=== PATIENT | male | born 1945 | race Caucasian/White ===

== ENCOUNTER 2018-07-01 08:32 | Day surgery (SDC) | payer MEDICARE, BC ==
[~2018-07-01] VITALS: Ht 185.4 cm; Wt 105.3 kg
[2018-07-01] VITALS (13 sets, daily range): BP systolic 120–158; BP diastolic 53–89
[2018-07-01] MEDS ORDERED: normal saline 1000ml 1,000 ML IV SCH (09:15)
[2018-07-01] MEDS ORDERED: MIDAZolam 5mg/ml 2ml vial IV ONE (09:15)
[2018-07-01] MEDS ORDERED: fentaNYL/PF 50MCG/1 ML 2ML syringe IV ONE (09:15)
[2018-07-01] MEDS ORDERED: SYN0.088T PO (09:39)
[2018-07-01] MEDS ORDERED: COU4T PO (09:39)
[2018-07-01] MEDS ORDERED: AMIO200T40 PO (09:39)
[2018-07-01] MEDS ORDERED: ASPI-1265 PO (09:39)
[2018-07-01] MEDS ORDERED: METO-539 PO (09:39)
[2018-07-01] MEDS ORDERED: LISI-600 PO (09:39)
[2018-07-01 09:51] LABS: BASOPHILS % (AUTO) 0.3 % (0-1); EOSINOPHILS # (AUTO) 0.2 X10'3 (0-0.9); EOSINOPHILS % (AUTO) 3.3 % (0-6); HEMATOCRIT 50.3 % (42.0-52.0); HEMOGLOBIN 17.7 g/dl (14.0-17.9); LYMPHOCYTES # (AUTO) 1.1 X10'3 (1.1-4.8); LYMPHOCYTES % (AUTO) 15.7 % (21-51); MEAN CORPUSCULAR HEMOGLOBIN 32.2 PG (27.0-31.0); MEAN CORPUSCULAR HGB CONC 35.2 g/dL (33.0-36.5); MEAN CORPUSCULAR VOLUME 91.4 FL (78-98); MEAN PLATELET VOLUME 6.9 FL (7.4-10.4); MONOCYTES # (AUTO) 0.3 X10'3 (0-0.9); MONOCYTES % (AUTO) 4.6 % (2-12); NEUTROPHILS # (AUTO) 5.5 X10'3 (1.8-7.7); NEUTROPHILS % (AUTO) 76.1 % (42-75); PLATELET COUNT 178 X10'3 (140-440); RED BLOOD COUNT 5.51 X10'6 (4.70-6.10); RED CELL DISTRIBUTION WIDTH 13.3 % (11.5-14.5); WHITE BLOOD COUNT 7.2 X10'3 (4.5-11.0)
[2018-07-01 10:02] LABS: ALBUMIN 4.2 G/DL (3.4-5.0); ANION GAP 7 (8-16); BLOOD UREA NITROGEN 11 MG/DL (7-18); BUN/CREATININE RATIO 8.1 (5.4-32.0); CALCIUM 9.2 MG/DL (8.5-10.1); CHLORIDE 103 MMOL/L (99-107); CREATININE 1.35 MG/DL (0.60-1.10); GLUCOSE 92 MG/DL (70-104); MAGNESIUM 2.1 MG/DL (1.5-2.4); POTASSIUM 4.2 MMOL/L (3.5-5.1); SODIUM 138 MMOL/L (135-145); TOTAL CARBON DIOXIDE 27.7 MMOL/L (24-32); eGFR 52 ML/MIN
[2018-07-01 10:16] LABS: INR 2.7 INR; PROTHROMBIN TIME 25.6 SECONDS (9.0-12.0)
== END 2018-07-01 12:15 | disposition home or self-care (01) ==
LOC: SSTAY O 08:32
PROVIDERS: ATTEND Internal Medicine Cardiovascular Disease
DX: I48.0 Paroxysmal atrial fibrillation (principal); I44.7 Left bundle-branch block, unspecified; I10 Essential (primary) hypertension; E03.9 Hypothyroidism, unspecified; I35.0 Nonrheumatic aortic (valve) stenosis; I71.9 Aortic aneurysm of unspecified site, without rupture; H91.8X3 Other specified hearing loss, bilateral; Z98.52 Vasectomy status; Z86.79 Personal history of other diseases of the circulatory system; Z87.891 Personal history of nicotine dependence; Z88.5 Allergy status to narcotic agent; Z90.49 Acquired absence of other specified parts of digestive tract; Z95.2 Presence of prosthetic heart valve; Z79.82 Long term (current) use of aspirin; Z79.01 Long term (current) use of anticoagulants; Z79.899 Other long term (current) drug therapy; Z98.890 Other specified postprocedural states; Z80.1 Family history of malignant neoplasm of trachea, bronchus and lung; Z82.49 Family history of ischemic heart disease and other diseases of the circulatory system
CPT/HCPCS: 36415; 80048; 83735; 85025; 85610; 92960; 93005; J2250; J3010; J7030

== ENCOUNTER 2022-06-26 12:44 | Inpatient (IN) | payer MEDICARE, BC ==
[~2022-06-26] VITALS: Ht 182.9 cm; Wt 93.5 kg
[~2022-06-26 12:44] MED LIST: AMIO200T61 PO; ASPI-1265 PO; COU4T PO; LISI20TA28 PO; METO-539 PO; SYN0.088T PO
[2022-06-26 13:18] LABS: BASOPHILS % (AUTO) 0.3 % (0-1); EOSINOPHILS % (AUTO) 0.1 % (0-6); HEMATOCRIT 37.1 % (42.0-52.0); HEMOGLOBIN 12.7 g/dl (14.0-17.9); LYMPHOCYTES # (AUTO) 0.4 X10'3 (1.1-4.8); LYMPHOCYTES % (AUTO) 2.7 % (21-51); MEAN CORPUSCULAR HEMOGLOBIN 31.8 PG (27.0-31.0); MEAN CORPUSCULAR HGB CONC 34.3 g/dL (33.0-36.5); MEAN CORPUSCULAR VOLUME 92.7 FL (78-98); MEAN PLATELET VOLUME 6.8 FL (7.4-10.4); MONOCYTES # (AUTO) 0.5 X10'3 (0-0.9); MONOCYTES % (AUTO) 3.7 % (2-12); NEUTROPHILS % (AUTO) 93.2 % (42-75); PLATELET COUNT 242 X10'3 (140-440); RED CELL DISTRIBUTION WIDTH 13.6 % (11.5-14.5)
[2022-06-26] MEDS: dextrose 5%-1/2 normal saline 1,000 ML IV SCH ×3 (13:20→21:20)
[2022-06-26 13:34] LABS: ALANINE AMINOTRANSFERASE 29 U/L (12-78); ALBUMIN 3.4 G/DL (3.4-5.0); ALKALINE PHOSPHATASE 94 IU/L (46-116); ANION GAP 17 (8-16); ASPARTATE AMINO TRANSFERASE 20 U/L (10-37); BILIRUBIN,TOTAL 0.5 MG/DL (0.1-1.0); BLOOD UREA NITROGEN 117 MG/DL (7-18); BUN/CREATININE RATIO 9.7 (5.4-32.0); CHLORIDE 105 MMOL/L (99-107); CREATININE 12.02 MG/DL (0.60-1.10); GLUCOSE 111 MG/DL (70-104); POTASSIUM 5.4 MMOL/L (3.5-5.1); SODIUM 136 MMOL/L (135-145); TOTAL PROTEIN 6.8 G/DL (6.4-8.2); eGFR 4 ML/MIN
[2022-06-26 13:39] LABS: TOTAL CARBON DIOXIDE 14.4 MMOL/L (24-32)
[2022-06-26] MEDS ORDERED: potassium Cl 40MEQ/1/2NS 520ml 520 ML IV PRN (13:40)
[2022-06-26] MEDS ORDERED: magnesium 4gm in 100ml NS 100 ML IV PRN (13:40)
[2022-06-26] MEDS ORDERED: ondansetron/PF 4mg/2ml inj IV PRN (13:40)
[2022-06-26] MEDS: normal saline 1000ml 1,000 ML IV SCH ×2 (13:40→23:40)
[2022-06-26] MEDS ORDERED: potassium Cl 20 mEq SR tablet PO PRN ×2 (13:40)
[2022-06-26] MEDS ORDERED: magnesium Cl slow-release 64mg tablet PO PRN (13:40)
--- NOTE | 2022-06-26 13:52 | NUR ---
Pt will be receiving Sodium bicarb 1mEq/ml 50 ml in Dextrose 5%- water IV 1000ml, so NS not admin.
--- NOTE | 2022-06-26 14:06 | NUR ---
PAGED DR BEEBE AT THIS TIME FOR INR OF 8.
[2022-06-26] MEDS: WATER IV SCH ×2 (14:34→20:57)
[2022-06-26] MEDS: DEXTROSE 5% IV SCH ×2 (14:34→20:57)
[2022-06-26] MEDS: SODIUM BICARBONATE IV SCH ×2 (14:34→20:57)
--- NOTE | 2022-06-26 14:38 | NUR ---
REPAGED DR BEEBE AT THIS TIME FOR REPORTING CRITICAL LAB VALUE AND ORDER FOR CONTINOUS BLADDER IRRIGATION FOR HEMATURIA?PT HAS 2 WAY STEINER FROM [facility] .
--- NOTE | 2022-06-26 14:47 | NUR ---
SPOKE TO DR BEEBE REGARDING PT INR LEVEL 8 TELE ORDER TO GIVE 2 UNIT OF FFP ,ALSO INFORMED THAT PT HAS HEMATURIA ?DOES PT NEED CONT BLADDER IRRIGATION , PER MD NO BLADDER IRRIGATION AT THIS TIME.
[2022-06-26] MEDS ORDERED: CHOL100046 PO (15:38)
[2022-06-26] MEDS ORDERED: WARF-55 PO (15:38)
[2022-06-26] MEDS ORDERED: LEVO100T9 PO (15:38)
[2022-06-26] MEDS ORDERED: METO-395 PO (15:38)
[2022-06-26] MEDS ORDERED: LISI40TA13 PO (15:38)
[2022-06-26] MEDS ORDERED: ASCO500T28 PO (15:38)
[2022-06-26] MEDS ORDERED: ASPI81TA52 PO (15:38)
--- NOTE | 2022-06-26 16:07 | NUR ---
Patient in room ED 6. I have received report from ER nurse Julia GREEN and had the opportunity to ask questions and assume patient care.
[2022-06-26 16:23] VITALS: BP 158/77
[2022-06-26 17:08] VITALS: BP 134/74
--- NOTE | 2022-06-26 17:10 | NUR ---
First unit of FFP started. Nurse at bedside monitoring.
--- NOTE | 2022-06-26 17:39 | NUR ---
Patient arrived to floor via gurney accompanied by ER nurse. Transfered to hospital bed. Bi carb running at 250/hr. Anand in place draining to gravity Bloody urine. No complaints noted. Addendum: 06/26/22 at 1741 by BALJEET BRIZUELA LVN 1620 not 1740
[2022-06-26 18:00] VITALS: BP 135/71
--- NOTE | 2022-06-26 18:00 | NUR ---
Patient in room PCU 3026. I have received report from NORMA Cooper and had the opportunity to ask questions and assume patient care.
[2022-06-26] MEDS: K and/or MAG REPLACEMENT MC SCH (20:00)
[2022-06-26 21:39] LABS: ALANINE AMINOTRANSFERASE 27 U/L (12-78); ALKALINE PHOSPHATASE 76 IU/L (46-116); ANION GAP 14 (8-16); ASPARTATE AMINO TRANSFERASE 15 U/L (10-37); BILIRUBIN,TOTAL 0.6 MG/DL (0.1-1.0); BLOOD UREA NITROGEN 88 MG/DL (7-18); BUN/CREATININE RATIO 11.2 (5.4-32.0); CALCIUM 8.1 MG/DL (8.5-10.1); CHLORIDE 107 MMOL/L (99-107); CREATININE 7.87 MG/DL (0.60-1.10); GLUCOSE 164 MG/DL (70-104); POTASSIUM 4.7 MMOL/L (3.5-5.1); SODIUM 139 MMOL/L (135-145); eGFR 7 ML/MIN
[2022-06-26 22:00] VITALS: BP 156/77
[2022-06-27] MEDS: dextrose 5%-1/2 normal saline 1,000 ML IV SCH ×2 (01:20→05:20)
[2022-06-27] MEDS: SODIUM BICARBONATE IV SCH ×4 (01:36→12:34)
[2022-06-27] MEDS: DEXTROSE 5% IV SCH ×4 (01:36→12:34)
[2022-06-27] MEDS: WATER IV SCH ×4 (01:36→12:34)
[2022-06-27 02:47] VITALS: BP 142/74
[2022-06-27 04:27] LABS: BASOPHILS % (AUTO) 0.3 % (0-1); EOSINOPHILS # (AUTO) 0.1 X10'3 (0-0.9); EOSINOPHILS % (AUTO) 0.8 % (0-6); HEMATOCRIT 28.6 % (42.0-52.0); HEMOGLOBIN 10.1 g/dl (14.0-17.9); LYMPHOCYTES # (AUTO) 0.8 X10'3 (1.1-4.8); MEAN CORPUSCULAR HEMOGLOBIN 32.3 PG (27.0-31.0); MEAN CORPUSCULAR HGB CONC 35.4 g/dL (33.0-36.5); MEAN CORPUSCULAR VOLUME 91.3 FL (78-98); MEAN PLATELET VOLUME 6.5 FL (7.4-10.4); MONOCYTES # (AUTO) 0.6 X10'3 (0-0.9); MONOCYTES % (AUTO) 6.9 % (2-12); NEUTROPHILS # (AUTO) 7.8 X10'3 (1.8-7.7); PLATELET COUNT 194 X10'3 (140-440); RED BLOOD COUNT 3.13 X10'6 (4.70-6.10); RED CELL DISTRIBUTION WIDTH 13.4 % (11.5-14.5); WHITE BLOOD COUNT 9.4 X10'3 (4.5-11.0)
[2022-06-27 06:00] VITALS: BP 154/80
[2022-06-27 06:31] LABS: ALANINE AMINOTRANSFERASE 24 U/L (12-78); ALKALINE PHOSPHATASE 71 IU/L (46-116); ANION GAP 9 (8-16); ASPARTATE AMINO TRANSFERASE 14 U/L (10-37); BILIRUBIN,TOTAL 1.1 MG/DL (0.1-1.0); BLOOD UREA NITROGEN 63 MG/DL (7-18); BUN/CREATININE RATIO 12.1 (5.4-32.0); CALCIUM 8.3 MG/DL (8.5-10.1); CHLORIDE 108 MMOL/L (99-107); GLUCOSE 148 MG/DL (70-104); MAGNESIUM 1.7 MG/DL (1.5-2.4); POTASSIUM 4.7 MMOL/L (3.5-5.1); SODIUM 138 MMOL/L (135-145); TOTAL PROTEIN 5.9 G/DL (6.4-8.2); eGFR 11 ML/MIN
[2022-06-27] MEDS: K and/or MAG REPLACEMENT MC SCH ×2 (08:00→20:00)
[2022-06-27 12:00] VITALS: BP 136/74
[2022-06-27 13:51] LABS: ALANINE AMINOTRANSFERASE 24 U/L (12-78); ALBUMIN 3.2 G/DL (3.4-5.0); ALKALINE PHOSPHATASE 81 IU/L (46-116); ANION GAP 7 (8-16); ASPARTATE AMINO TRANSFERASE 20 U/L (10-37); BILIRUBIN,TOTAL 1.1 MG/DL (0.1-1.0); BLOOD UREA NITROGEN 52 MG/DL (7-18); BUN/CREATININE RATIO 13.3 (5.4-32.0); CALCIUM 8.5 MG/DL (8.5-10.1); CHLORIDE 106 MMOL/L (99-107); GLUCOSE 137 MG/DL (70-104); POTASSIUM 4.2 MMOL/L (3.5-5.1); SODIUM 137 MMOL/L (135-145); TOTAL CARBON DIOXIDE 24.3 MMOL/L (24-32); TOTAL PROTEIN 6.4 G/DL (6.4-8.2); eGFR 15 ML/MIN
--- NOTE | 2022-06-27 14:54 | NUR ---
PAGER ID: [phone] MESSAGE: [id number], Yo Hamlin. Pt has a headache and is asking for Tylenol. Also, I have another pt of yours threatening AMA if they don't get discharge orders soon. Zuleika [facility] [id number].
[2022-06-27] MEDS ORDERED: acetaminophen 325mg tablet PO PRN (15:55)
[2022-06-27] MEDS ORDERED: warfarin 5mg tablet PO ONE ×2 (16:15→21:00)
[2022-06-27 18:00] VITALS: BP 105/64
--- NOTE | 2022-06-27 19:21 | NUR ---
Problems reprioritized. Patient report given, questions answered & plan of care reviewed with Sreedhar GREEN, patient stable at transfer of care..
[2022-06-27] MEDS: sodium chloride 0.45% 1,000 ML IV SCH ×2 (19:40→22:25)
[2022-06-27 21:29] LABS: ALANINE AMINOTRANSFERASE 24 U/L (12-78); ALBUMIN 2.9 G/DL (3.4-5.0); ALKALINE PHOSPHATASE 72 IU/L (46-116); ANION GAP 10 (8-16); ASPARTATE AMINO TRANSFERASE 15 U/L (10-37); BILIRUBIN,TOTAL 0.7 MG/DL (0.1-1.0); BLOOD UREA NITROGEN 40 MG/DL (7-18); BUN/CREATININE RATIO 12.7 (5.4-32.0); CALCIUM 8.5 MG/DL (8.5-10.1); CHLORIDE 106 MMOL/L (99-107); CREATININE 3.16 MG/DL (0.60-1.10); GLUCOSE 113 MG/DL (70-104); POTASSIUM 4.4 MMOL/L (3.5-5.1); SODIUM 139 MMOL/L (135-145); TOTAL CARBON DIOXIDE 23.5 MMOL/L (24-32); TOTAL PROTEIN 5.9 G/DL (6.4-8.2); eGFR 19 ML/MIN
[2022-06-27] MEDS: heparin, porcine 5000 units/ml vial SQ SCH (21:55)
[2022-06-27 22:00] VITALS: BP 129/76
[2022-06-28] MEDS: sodium chloride 0.45% 1,000 ML IV SCH ×3 (01:55→13:32)
[2022-06-28 02:00] VITALS: BP 118/64
[2022-06-28 07:55] LABS: BASOPHILS # (AUTO) 0.1 X10'3 (0-0.2); BASOPHILS % (AUTO) 0.5 % (0-1); EOSINOPHILS # (AUTO) 0.4 X10'3 (0-0.9); EOSINOPHILS % (AUTO) 3.8 % (0-6); HEMATOCRIT 30.7 % (42.0-52.0); HEMOGLOBIN 10.5 g/dl (14.0-17.9); LYMPHOCYTES # (AUTO) 1.1 X10'3 (1.1-4.8); LYMPHOCYTES % (AUTO) 10.3 % (21-51); MEAN CORPUSCULAR HEMOGLOBIN 31.8 PG (27.0-31.0); MEAN CORPUSCULAR HGB CONC 34.2 g/dL (33.0-36.5); MEAN PLATELET VOLUME 6.9 FL (7.4-10.4); MONOCYTES # (AUTO) 0.7 X10'3 (0-0.9); MONOCYTES % (AUTO) 6.8 % (2-12); NEUTROPHILS # (AUTO) 8.6 X10'3 (1.8-7.7); NEUTROPHILS % (AUTO) 78.6 % (42-75); PLATELET COUNT 224 X10'3 (140-440); RED CELL DISTRIBUTION WIDTH 13.4 % (11.5-14.5); WHITE BLOOD COUNT 10.9 X10'3 (4.5-11.0)
[2022-06-28] MEDS: K and/or MAG REPLACEMENT MC SCH ×2 (08:00→20:00)
[2022-06-28] MEDS: levoTHYROXINE 100mcg tablet PO SCH (08:35)
[2022-06-28] MEDS: heparin, porcine 5000 units/ml vial SQ SCH (08:37)
[2022-06-28 08:42] LABS: ALANINE AMINOTRANSFERASE 23 U/L (12-78); ALKALINE PHOSPHATASE 73 IU/L (46-116); ANION GAP 7 (8-16); ASPARTATE AMINO TRANSFERASE 15 U/L (10-37); BILIRUBIN,TOTAL 0.9 MG/DL (0.1-1.0); BLOOD UREA NITROGEN 32 MG/DL (7-18); BUN/CREATININE RATIO 13.2 (5.4-32.0); CALCIUM 8.7 MG/DL (8.5-10.1); CHLORIDE 107 MMOL/L (99-107); CREATININE 2.43 MG/DL (0.60-1.10); GLUCOSE 96 MG/DL (70-104); MAGNESIUM 1.6 MG/DL (1.5-2.4); SODIUM 137 MMOL/L (135-145); TOTAL CARBON DIOXIDE 22.8 MMOL/L (24-32); TOTAL PROTEIN 6.1 G/DL (6.4-8.2); eGFR 26 ML/MIN
[2022-06-28] MEDS ORDERED: heparin 10,000 units/1 ML INJ IV PRN (09:55)
[2022-06-28] MEDS ORDERED: heparin 10,000 units/1 ML INJ IV ONE (09:55)
[2022-06-28] MEDS: heparin 25,000 UNIT/250ml bag 250 ML IV PRN (11:56)
[2022-06-28 11:57] LABS: APTT 34 SECONDS (22-32)
[2022-06-28 13:07] LABS: ALANINE AMINOTRANSFERASE 26 U/L (12-78); ALKALINE PHOSPHATASE 72 IU/L (46-116); ANION GAP 4 (8-16); ASPARTATE AMINO TRANSFERASE 17 U/L (10-37); BILIRUBIN,TOTAL 0.7 MG/DL (0.1-1.0); BLOOD UREA NITROGEN 31 MG/DL (7-18); BUN/CREATININE RATIO 13.8 (5.4-32.0); CALCIUM 8.8 MG/DL (8.5-10.1); CHLORIDE 106 MMOL/L (99-107); CREATININE 2.24 MG/DL (0.60-1.10); GLUCOSE 101 MG/DL (70-104); POTASSIUM 4.8 MMOL/L (3.5-5.1); SODIUM 135 MMOL/L (135-145); TOTAL CARBON DIOXIDE 24.8 MMOL/L (24-32); TOTAL PROTEIN 6.1 G/DL (6.4-8.2); eGFR 29 ML/MIN
[2022-06-28 18:00] VITALS: BP 107/70
--- NOTE | 2022-06-28 18:19 | NUR ---
Problems reprioritized. Patient report given, questions answered & plan of care reviewed with Sreedhar GREEN, patient stable at transfer of care.
[2022-06-28 18:35] LABS: BASOPHILS # (AUTO) 0.1 X10'3 (0-0.2); BASOPHILS % (AUTO) 0.4 % (0-1); EOSINOPHILS # (AUTO) 0.6 X10'3 (0-0.9); EOSINOPHILS % (AUTO) 4.5 % (0-6); HEMATOCRIT 29.2 % (42.0-52.0); HEMOGLOBIN 10.2 g/dl (14.0-17.9); LYMPHOCYTES # (AUTO) 1.9 X10'3 (1.1-4.8); LYMPHOCYTES % (AUTO) 14.6 % (21-51); MEAN CORPUSCULAR HEMOGLOBIN 32.1 PG (27.0-31.0); MEAN CORPUSCULAR HGB CONC 34.9 g/dL (33.0-36.5); MEAN PLATELET VOLUME 6.9 FL (7.4-10.4); MONOCYTES # (AUTO) 0.7 X10'3 (0-0.9); MONOCYTES % (AUTO) 5.5 % (2-12); NEUTROPHILS # (AUTO) 9.7 X10'3 (1.8-7.7); PLATELET COUNT 258 X10'3 (140-440); RED BLOOD COUNT 3.17 X10'6 (4.70-6.10); WHITE BLOOD COUNT 12.9 X10'3 (4.5-11.0)
[2022-06-28] MEDS ORDERED: warfarin 3mg tablet PO ONE (21:00)
[2022-06-28] MEDS ORDERED: warfarin 5mg tablet PO SCH (21:00)
[2022-06-28 22:00] VITALS: BP 110/65
[2022-06-29 02:00] VITALS: BP 105/58
[2022-06-29] MEDS: sodium chloride 0.45% 1,000 ML IV SCH ×2 (02:18→15:12)
[2022-06-29 07:00] VITALS: BP 114/68
[2022-06-29] MEDS: K and/or MAG REPLACEMENT MC SCH ×2 (08:00→20:00)
[2022-06-29] MEDS: levoTHYROXINE 100mcg tablet PO SCH (08:19)
[2022-06-29 08:26] LABS: ALBUMIN 3.1 G/DL (3.4-5.0); ANION GAP 4 (8-16); BLOOD UREA NITROGEN 33 MG/DL (7-18); BUN/CREATININE RATIO 16.5 (5.4-32.0); CALCIUM 8.9 MG/DL (8.5-10.1); CHLORIDE 106 MMOL/L (99-107); GLUCOSE 107 MG/DL (70-104); MAGNESIUM 1.8 MG/DL (1.5-2.4); POTASSIUM 4.8 MMOL/L (3.5-5.1); SODIUM 133 MMOL/L (135-145); eGFR 33 ML/MIN
[2022-06-29 08:33] LABS: BASOPHILS # (AUTO) 0.1 X10'3 (0-0.2); BASOPHILS % (AUTO) 0.6 % (0-1); EOSINOPHILS # (AUTO) 0.6 X10'3 (0-0.9); HEMOGLOBIN 10.3 g/dl (14.0-17.9); LYMPHOCYTES # (AUTO) 1.8 X10'3 (1.1-4.8); LYMPHOCYTES % (AUTO) 14.7 % (21-51); MEAN CORPUSCULAR HEMOGLOBIN 31.4 PG (27.0-31.0); MEAN CORPUSCULAR HGB CONC 33.2 g/dL (33.0-36.5); MEAN CORPUSCULAR VOLUME 94.6 FL (78-98); MEAN PLATELET VOLUME 6.9 FL (7.4-10.4); MONOCYTES # (AUTO) 0.8 X10'3 (0-0.9); MONOCYTES % (AUTO) 6.5 % (2-12); NEUTROPHILS % (AUTO) 73.2 % (42-75); PLATELET COUNT 241 X10'3 (140-440); RED BLOOD COUNT 3.27 X10'6 (4.70-6.10); RED CELL DISTRIBUTION WIDTH 13.4 % (11.5-14.5); WHITE BLOOD COUNT 12.3 X10'3 (4.5-11.0)
[2022-06-29] MEDS: heparin 25,000 UNIT/250ml bag 250 ML IV PRN (08:34)
[2022-06-29 11:00] VITALS: BP 136/69
[2022-06-29 11:54] VITALS: BP_SYST 105; BP_SYST 110; BP_SYST 136; BP_DIAS 60; BP_DIAS 69; BP_DIAS 71
[2022-06-29 14:36] LABS: BASOPHILS # (AUTO) 0.1 X10'3 (0-0.2); BASOPHILS % (AUTO) 0.6 % (0-1); EOSINOPHILS # (AUTO) 0.5 X10'3 (0-0.9); EOSINOPHILS % (AUTO) 5.2 % (0-6); HEMATOCRIT 28.9 % (42.0-52.0); LYMPHOCYTES # (AUTO) 1.5 X10'3 (1.1-4.8); LYMPHOCYTES % (AUTO) 14.5 % (21-51); MEAN CORPUSCULAR HEMOGLOBIN 32.3 PG (27.0-31.0); MEAN CORPUSCULAR HGB CONC 34.6 g/dL (33.0-36.5); MEAN CORPUSCULAR VOLUME 93.3 FL (78-98); MEAN PLATELET VOLUME 6.8 FL (7.4-10.4); MONOCYTES # (AUTO) 0.6 X10'3 (0-0.9); MONOCYTES % (AUTO) 6.4 % (2-12); NEUTROPHILS # (AUTO) 7.4 X10'3 (1.8-7.7); NEUTROPHILS % (AUTO) 73.3 % (42-75); PLATELET COUNT 250 X10'3 (140-440); RED CELL DISTRIBUTION WIDTH 13.3 % (11.5-14.5); WHITE BLOOD COUNT 10.1 X10'3 (4.5-11.0)
[2022-06-29 15:00] VITALS: BP 118/59
[2022-06-29 18:00] VITALS: BP_SYST 122; BP_SYST 132; BP_DIAS 67
[2022-06-29] MEDS ORDERED: warfarin 7.5mg tablet PO ONE (21:00)
[2022-06-29] MEDS ORDERED: warfarin 3mg tablet PO ONE (21:00)
[2022-06-30] VITALS (8 sets, daily range): BP systolic 94–135; BP diastolic 56–74
[2022-06-30] MEDS: heparin 25,000 UNIT/250ml bag 250 ML IV PRN (03:19)
[2022-06-30 06:45] LABS: ALBUMIN 2.8 G/DL (3.4-5.0); ANION GAP 8 (8-16); BLOOD UREA NITROGEN 28 MG/DL (7-18); BUN/CREATININE RATIO 15.2 (5.4-32.0); CALCIUM 8.7 MG/DL (8.5-10.1); CHLORIDE 106 MMOL/L (99-107); CREATININE 1.84 MG/DL (0.60-1.10); GLUCOSE 101 MG/DL (70-104); MAGNESIUM 1.6 MG/DL (1.5-2.4); POTASSIUM 4.5 MMOL/L (3.5-5.1); SODIUM 136 MMOL/L (135-145); TOTAL CARBON DIOXIDE 21.6 MMOL/L (24-32); eGFR 36 ML/MIN
[2022-06-30 06:55] LABS: BASOPHILS # (AUTO) 0.1 X10'3 (0-0.2); BASOPHILS % (AUTO) 0.8 % (0-1); EOSINOPHILS # (AUTO) 0.5 X10'3 (0-0.9); EOSINOPHILS % (AUTO) 5.4 % (0-6); HEMOGLOBIN 9.7 g/dl (14.0-17.9); LYMPHOCYTES # (AUTO) 1.4 X10'3 (1.1-4.8); MEAN CORPUSCULAR HEMOGLOBIN 32.2 PG (27.0-31.0); MEAN CORPUSCULAR HGB CONC 34.8 g/dL (33.0-36.5); MEAN CORPUSCULAR VOLUME 92.4 FL (78-98); MEAN PLATELET VOLUME 7.5 FL (7.4-10.4); MONOCYTES # (AUTO) 0.5 X10'3 (0-0.9); NEUTROPHILS # (AUTO) 6.4 X10'3 (1.8-7.7); NEUTROPHILS % (AUTO) 71.8 % (42-75); PLATELET COUNT 227 X10'3 (140-440); RED BLOOD COUNT 3.03 X10'6 (4.70-6.10); RED CELL DISTRIBUTION WIDTH 13.1 % (11.5-14.5)
[2022-06-30] MEDS: levoTHYROXINE 100mcg tablet PO SCH (07:00)
[2022-06-30] MEDS: K and/or MAG REPLACEMENT MC SCH ×2 (08:00→20:00)
[2022-06-30] MEDS: enoxaparin 60mg/0.6ml syringe SUBCUT SCH ×2 (12:53→20:41)
[2022-06-30] MEDS: enoxaparin 30mg/0.3ml syringe SUBCUT SCH ×2 (12:54→20:40)
[2022-06-30 14:01] LABS: BASOPHILS # (AUTO) 0.1 X10'3 (0-0.2); BASOPHILS % (AUTO) 0.5 % (0-1); EOSINOPHILS # (AUTO) 0.5 X10'3 (0-0.9); EOSINOPHILS % (AUTO) 4.9 % (0-6); HEMATOCRIT 28.7 % (42.0-52.0); HEMOGLOBIN 9.7 g/dl (14.0-17.9); LYMPHOCYTES # (AUTO) 1.4 X10'3 (1.1-4.8); MEAN CORPUSCULAR HEMOGLOBIN 31.5 PG (27.0-31.0); MEAN CORPUSCULAR HGB CONC 33.9 g/dL (33.0-36.5); MONOCYTES # (AUTO) 0.7 X10'3 (0-0.9); MONOCYTES % (AUTO) 7.1 % (2-12); NEUTROPHILS # (AUTO) 7.5 X10'3 (1.8-7.7); NEUTROPHILS % (AUTO) 73.5 % (42-75); PLATELET COUNT 251 X10'3 (140-440); RED BLOOD COUNT 3.08 X10'6 (4.70-6.10); RED CELL DISTRIBUTION WIDTH 12.9 % (11.5-14.5); WHITE BLOOD COUNT 10.1 X10'3 (4.5-11.0)
[2022-06-30] MEDS ORDERED: enoxaparin 100mg/ml syringe SUBCUT ONE (20:00)
[2022-06-30] MEDS ORDERED: warfarin 7.5mg tablet PO ONE (21:00)
[2022-07-01] VITALS: BP_SYST 85; BP_SYST 86; BP_SYST 97; BP_DIAS 43; BP_DIAS 55; BP_DIAS 61
[2022-07-01 06:25] LABS: BASOPHILS # (AUTO) 0.1 X10'3 (0-0.2); BASOPHILS % (AUTO) 0.6 % (0-1); EOSINOPHILS # (AUTO) 0.4 X10'3 (0-0.9); EOSINOPHILS % (AUTO) 4.5 % (0-6); HEMATOCRIT 27.3 % (42.0-52.0); HEMOGLOBIN 9.5 g/dl (14.0-17.9); LYMPHOCYTES # (AUTO) 1.7 X10'3 (1.1-4.8); LYMPHOCYTES % (AUTO) 16.9 % (21-51); MEAN CORPUSCULAR HGB CONC 34.7 g/dL (33.0-36.5); MEAN CORPUSCULAR VOLUME 92.2 FL (78-98); MEAN PLATELET VOLUME 7.1 FL (7.4-10.4); MONOCYTES # (AUTO) 0.6 X10'3 (0-0.9); MONOCYTES % (AUTO) 5.9 % (2-12); NEUTROPHILS # (AUTO) 7.1 X10'3 (1.8-7.7); NEUTROPHILS % (AUTO) 72.1 % (42-75); PLATELET COUNT 259 X10'3 (140-440); RED BLOOD COUNT 2.96 X10'6 (4.70-6.10); WHITE BLOOD COUNT 9.8 X10'3 (4.5-11.0)
[2022-07-01 06:32] LABS: ALBUMIN 2.9 G/DL (3.4-5.0); ANION GAP 7 (8-16); BLOOD UREA NITROGEN 24 MG/DL (7-18); BUN/CREATININE RATIO 12.6 (5.4-32.0); CALCIUM 8.8 MG/DL (8.5-10.1); CHLORIDE 105 MMOL/L (99-107); CREATININE 1.91 MG/DL (0.60-1.10); GLUCOSE 99 MG/DL (70-104); POTASSIUM 4.6 MMOL/L (3.5-5.1); SODIUM 134 MMOL/L (135-145); TOTAL CARBON DIOXIDE 21.6 MMOL/L (24-32); eGFR 34 ML/MIN
[2022-07-01 08:00] VITALS: BP 117/63
[2022-07-01 08:05] VITALS: BP 115/66
[2022-07-01 08:10] VITALS: BP 114/62
[2022-07-01] MEDS: levoTHYROXINE 100mcg tablet PO SCH (09:07)
[2022-07-01] MEDS: enoxaparin 60mg/0.6ml syringe SUBCUT SCH (09:10)
[2022-07-01] MEDS: enoxaparin 30mg/0.3ml syringe SUBCUT SCH (09:15)
[2022-07-01] MEDS ORDERED: ENOX30DI4 SUBCUT (11:16)
[2022-07-01] MEDS ORDERED: ENOX60SY7 SUBCUT (11:16)
--- NOTE | 2022-07-01 18:17 | NUR ---
pt discharged to home with home health. is a great advocate and helper. instructed spouse on how to administer lovenox, how to manage the shetty catheter, and how to document issues and output. pt will follow up with the following doctors. Dr Jimenez, Dr Brown, Dr Fowler, and will seek out a primary care. vss a/ox3
[2022-07-01] MEDS ORDERED: warfarin 3mg tablet PO ONE (21:00)
== END 2022-07-01 16:37 | disposition home health service (06) | DRG 683 ==
LOC: ER 12:44 → ED HOLD 13:40 → PCU 3S 16:24
PROVIDERS: ADMIT Internal Medicine; ATTEND Internal Medicine
PROC: 0T9B70Z Drainage of Bladder with Drainage Device, Via Natural or Artificial Opening (ICD-10-PCS; principal; 2022-06-26)
PROC: 30233K1 Transfusion of Nonautologous Frozen Plasma into Peripheral Vein, Percutaneous Approach (ICD-10-PCS; 2022-06-26)
DX: N17.9 Acute kidney failure, unspecified (principal); D62 Acute posthemorrhagic anemia; N13.8 Other obstructive and reflux uropathy; K62.5 Hemorrhage of anus and rectum; I48.20 Chronic atrial fibrillation, unspecified; E87.20 Acidosis, unspecified; D68.9 Coagulation defect, unspecified; T83.83XA Hemorrhage due to genitourinary prosthetic devices, implants and grafts, initial encounter; N40.1 Benign prostatic hyperplasia with lower urinary tract symptoms; E03.9 Hypothyroidism, unspecified; E87.5 Hyperkalemia; R31.0 Gross hematuria; I10 Essential (primary) hypertension; I25.10 Atherosclerotic heart disease of native coronary artery without angina pectoris; N32.0 Bladder-neck obstruction; N32.89 Other specified disorders of bladder; R04.0 Epistaxis; Z79.01 Long term (current) use of anticoagulants; Z95.2 Presence of prosthetic heart valve; Z79.899 Other long term (current) drug therapy; Z79.82 Long term (current) use of aspirin; Y84.9 Medical procedure, unspecified as the cause of abnormal reaction of the patient, or of later complication, without mention of misadventure at the time of the procedure; Y92.9 Unspecified place or not applicable
CPT/HCPCS: 36415; 36430; 71045; 74176; 80048; 80053; 83735; 84443; 85025; 85610; 85730; 86885; 86900; 86901; 87081; 93005; 99291; A4358; A5200; G0378; J1644; J1650; J3490; J7030; J7040; J7042; J7060; J7070; P9059